=== PATIENT | female | born 1965 | race Caucasian/White ===

== ENCOUNTER → 2020-08-02 | Outpatient (CLI) | payer OTHER ==
[~2020-08-02] MED LIST: COQ-1030 MG PO; HYDROCODON-ACE1 EAC7 PO; LIPITOR 10 MG10 M1 PO; TOPROL XL25 MG PO; VITAMIN C100 MG; VITAMIN D-40010 MCG
== END ==
LOC: M.LAB 17:11
PROVIDERS: ATTEND Surgery
DX: Z01.812 Encounter for preprocedural laboratory examination (principal); Z20.822 Contact with and (suspected) exposure to COVID-19

== ENCOUNTER → 2020-08-05 | Day surgery (SDC) | payer OTHER ==
--- NOTE | ~2020-08-05 | OP ---
[facility] [address] [place] [address] OPERATIVE REPORT Name: ARIANAENRIQUETAELISA D Room: [facility].#: [id number] Admission: 08/05/20 Attend Phys: Jv Norton Discharge: Date of : 61 Report #: [id number] THIS REPORT FOR: cc: Preston Garcia James V. DO Patterson, Jonathan D. MD ~ DATE OF SERVICE: 08/05/2020 PREOPERATIVE DIAGNOSIS: Symptomatic cholelithiasis. POSTOPERATIVE DIAGNOSIS: Symptomatic cholelithiasis. OPERATION: Laparoscopic cholecystectomy. SURGEON: Jv Norton MD. ANESTHESIA: General. ESTIMATED BLOOD LOSS: Minimal. SPECIMEN: Gallbladder. DESCRIPTION OF PROCEDURE: After informed consent was obtained, the patient was brought to the operating room and placed supine. SCDs were placed and working, preoperative antibiotics were administered, general anesthesia was induced. The abdomen was prepped and draped in the usual sterile fashion. A 10 mm incision was made below the umbilicus. Fascia was incised and a trocar was placed. Pneumoperitoneum was established. Three right upper quadrant 5 mm ports were placed. Gallbladder was grasped at the fundus and retracted cephalad. Infundibulum was grasped and retracted laterally. I dissected out the cystic duct and cystic artery. I dissected out the cystic plate. The cystic duct and artery were clipped and ligated leaving 2 clips on the remaining duct and 1 on the remaining artery. Gallbladder was then taken off the liver bed with electrocautery. It was placed into an Endopouch and removed. The fascia was then closed with a [id number]-lj-[id number] 0 Vicryl. Skin was closed with 4-0 Monocryl. Incisions were dressed with Steri-Strips. COMPLICATIONS: None. DISPOSITION: The patient was taken to recovery in satisfactory condition. By: [id number] 1937Jolewis Norton MD /nt
[2020-08-05 14:03] LABS: HEMATOCRIT 42.7 % (37.0-47.0); HEMOGLOBIN 14.3 gm/dL (12.0-15.0); MCHC 33.5 g/dL (28.0-37.0); MCV 86.5 fL (80.0-100.0); MPV 7.5 fl. (7.2-11.1); RBC 4.94 mil/uL (4.20-5.00); RDW-CV 13.5 % (10.5-14.5); WBC 6.6 thou/uL (4.0-11.0)
[2020-08-05 14:14] LABS: CALCIUM 8.9 mg/dL (8.5-10.1); CREATININE 0.9 mg/dL (0.6-1.3); POTASSIUM 3.9 mmol/L (3.5-5.1)
[2020-08-05 14:19] LABS: ALBUMIN 4.1 g/dL (3.4-5.0); TOTAL BILIRUBIN 0.6 mg/dL (<0.1-1.0); TOTAL PROTEIN 7.5 g/dL (6.4-8.2)
--- NOTE | 2020-08-05 15:46 | EKG ---
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 08/05/20 1545 1349 134 Curtis Palafox MD, FAC /EPI
--- NOTE | 2020-08-09 11:07 | PATH ---
[facility] [address] [place] [address] PATHOLOGY RPT PROCEDURE Name: ANDREASELISA D Room: [facility]#: [id number] Admission: 08/05/20 Date of : 61 Discharge: Report #: [id number] Path Case #: [id number] [facility] Accession Number: [id number] . 01 Material submitted: . gallbladder - GALLBLADDER AND CONTENTS . 01 Clinical history: . LAPAROSCOPIC CHOLECYSTECTOMY CALCULUS OF GALLBLADDER . 02 Diagnosis: Gallbladder and contents: - Chronic cholecystitis, cholesterolosis and cholelithiasis. . (RUFUS:mml; 08/08/2020) [facility] 08/08/2020 1618 Local . 02 Electronically signed: . Amandeep Sotelo MD, Pathologist NPI- [id number] . 01 Gross description: . Fixative: Formalin Labeled: Gallbladder and contents Specimen received: Intact cholecystectomy specimen Dimensions: 7.0 x 3.4 x 2.6 cm Serosa: Greer-purple and smooth Lymph node: None identified Mucosa: Dark green and velvety Average wall thickness: 0.1-0.2 cm Calculi: Within the gallbladder are 2 bosselated yellow-greer calculi measuring 0.8 and 1.1 cm in greatest dimension Abnormalities: None A1- Supervisor Cytogenetic Laboratory body, fundus, and the cystic duct margin. ([facility]; 08/06/2020) [facility] 08/06/2020 [facility] [place] Local . 02 Pathologist provided ICD-10: K80.10, K82.4 . 02 CPT . 436804 Specimen Comment: A courtesy copy of this report has been sent to [phone] Specimen Comment: Report sent to Performed at: [address] [id number] [address] [address] PATHOLOGY RPT PROCEDURE Name: ELISA JOHNS Room: [facility]#: [id number] Admission: 08/05/20 Date of : 61 Discharge: Report #: [id number] Path Case #: [id number] MD Pedro Dove MD Phone: [phone] Performed at: [address] [id number] MD Amandeep Sotelo MD Phone: [phone]
== END | disposition home or self-care (01) ==
LOC: M.SUR 05:37
PROVIDERS: ATTEND Surgery
DX: K80.20 Calculus of gallbladder without cholecystitis without obstruction (principal); Z79.899 Other long term (current) drug therapy; Z98.890 Other specified postprocedural states